=== PATIENT | male | born 1965 | race African-American/Black ===

== ENCOUNTER 2017-05-04 01:18 | Emergency (ER) | payer MEDICAID, OTHER ==
[~2017-05-04] VITALS: Ht 177.8 cm; Wt 106.6 kg
[~2017-05-04 01:18] MED LIST: KEFLEX500 MG ORAL
[2017-05-04] MEDS ORDERED: LOSARTAN POTASS50 MG ORAL (01:25)
[2017-05-04] MEDS ORDERED: ASPIRIN81 MG ORAL (01:26)
[2017-05-04] MEDS ORDERED: METFORMIN HCL500 M1 ORAL (01:26)
[2017-05-04] MEDS ORDERED: JANUVIA25 MG ORAL (01:26)
[2017-05-04 01:30] VITALS: BP 135/82
[2017-05-04] MEDS ORDERED: Methocarbamol 750mg tab ORAL ONE (01:45)
[2017-05-04] MEDS ORDERED: IBUPROFEN600 MG ORAL (01:48)
[2017-05-04] MEDS ORDERED: ROBAXIN-750750 MG PO (01:48)
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
[2017-05-04 02:45] VITALS: BP 130/79
[2017-05-04 02:50] VITALS: BP 130/79
--- NOTE | 2017-05-04 10:48 | Diagnostic Imaging Report ---
Indication: Neck Pain Findings: 3 views of the cervical spine were obtained. Mild degenerative changes of the cervical spine are demonstrated. This is characterized by vertebral endplate osteophyte formation and narrowing of intervertebral discs. There is no acute fracture identified. Alignment is normal. The open-mouth odontoid view shows an intact dens and good alignment of the lateral masses with respect to the body of C2. There is no soft tissue swelling. Impression: Mild spondylosis
== END 2017-05-04 02:50 | disposition home or self-care (01) ==
LOC: EMR 01:35
DX: M54.2 Cervicalgia (principal); M25.562 Pain in left knee; M54.5 Low back pain; E11.9 Type 2 diabetes mellitus without complications; I10 Essential (primary) hypertension; M47.892 Other spondylosis, cervical region
CPT/HCPCS: 72040; 99284